=== PATIENT | male | born 1965 | race African-American/Black ===

== ENCOUNTER → 2019-12-14 | Outpatient (CLI) | payer BC ==
[2014-08-27 07:55] VITALS: BP 162/88
[~2019-12-14] MED LIST: ASPI-252 PO; METF500T16 PO; REGADENOSON 0.4 MG/5 ML DISP.SYRIN. IV ONE
--- NOTE | 2019-12-15 12:13 | CARD ---
MR#: [id number] Date of Study: 12/15/2019 Ordering Physician: MARIAH SHEPPARD, Referring Physician: MARIAH SHEPPARD, Tech: Shiela Hammond [facility] APPROVED REPORT EXAM: Two-dimensional and M-mode echocardiogram with Doppler and color Doppler. Other Information Quality : Good INDICATION Hypertension/HCVD RISK FACTORS Hypertension Hyperlipidemia Diabetes 2D DIMENSIONS RVDd3.0 (2.9-3.5cm)Left Atrium(2D)3.7 (1.6-4.0cm) IVSd1.0 (0.7-1.1cm)Aortic Root(2D)3.0 (2.0-3.7cm) LVDd4.7 (3.9-5.9cm)LVOT Diameter2.3 (1.8-2.4cm) PWd1.1 (0.7-1.1cm)LVDs3.1 (2.5-4.0cm) FS (%) 34.9 %SV66.2 ml Aortic Valve AoV Peak Braxton.94.0cm/sAoV VTI12.0cm AO Peak GR.3.5mmHgLVOT Peak Braxton.92.0cm/s AO Mean GR.2mmHgAVA (VMAX)3.97cm2 FELICIA (VTI)4.20cm2 Mitral Valve MV E Xesiunmy48.5cm/sMV DECEL FRQQ237ls MV A Thpypdmm30.9cm/sE/A Ratio0.7 LEFT VENTRICLE The left ventricle is normal size. There is borderline concentric left ventricular hypertrophy. The l eft ventricular systolic function is normal and the ejection fraction is within normal range. The Eje ction Fraction is 55-60%. There is normal LV segmental wall motion. Transmitral Doppler flow pattern is Grade I-abnormal relaxation pattern. RIGHT VENTRICLE The right ventricle is normal size. The right ventricular systolic function is normal. ATRIA The left atrium size is normal. The right atrium size is normal. The interatrial septum is intact wit h no evidence for an atrial septal defect or patent foramen ovale as noted on 2-D or Doppler imaging. AORTIC VALVE The aortic valve is calcified but opens well. Doppler and Color Flow revealed no significant aortic r egurgitation. There is no significant aortic valvular stenosis. MITRAL VALVE The mitral valve is normal in structure and function. There is no evidence of mitral valve prolapse. There is no mitral valve stenosis. Doppler and Color Flow revealed no mitral valve regurgitation note d. TRICUSPID VALVE The tricuspid valve is normal in structure and function. Doppler and Color Flow revealed no tricuspid valve regurgitation noted. There is no tricuspid valve stenosis. PULMONIC VALVE The pulmonic valve is not well visualized. Doppler and Color Flow revealed trace pulmonic valvular re gurgitation. There is no pulmonic valvular stenosis. GREAT VESSELS The aortic root is normal in size. The ascending aorta is not well seen. The IVC is normal in size an d collapses >50% with inspiration. PERICARDIAL EFFUSION There is no evidence of significant pericardial effusion. Critical Notification Critical Value: No <Conclusion> The left ventricle is normal size. The left ventricular systolic function is normal and the ejection fraction is within normal range. The Ejection Fraction is 55-60%. There is borderline concentric left ventricular hypertrophy. Doppler and Color Flow revealed no significant aortic regurgitation. There is no significant aortic valvular stenosis. Doppler and Color Flow revealed no mitral valve regurgitation noted. Doppler and Color Flow revealed no tricuspid valve regurgitation noted. Signed by : Carlton Corcker MD Electronically Approved : 12/15/2019 12:12:40
--- NOTE | 2019-12-15 12:38 | RAD ---
MR#: [id number] Date of Study: 12/15/2019 Ordering Physician: MARIAH SHEPPARD, Referring Physician: DAGMAR CANNON Tech: RT Darrell (R) (N) APPROVED REPORT Test Type: Pharmacological Stress Nurse/Tech: Jessica Robertson R.N. Test Indications: dyspnea Cardiac History: stents 2015,obesity,DM Medications: See Electronic Medical Record Medical History: See Electronic Medical Record Resting Heart Rate: 107 bpm Resting Blood Pressure: 126/79mmHg Pretest Chest Pain: No chest pain Nurse/Tech Notes S1S2, lungs CTA Consent: The procedure was explained to the patient in lay terms. Informed consent was witnessed. Rufus eout was entered into [employer]. History and Stress Test performed by RT Guy (R) (N) Pharm. Details Pharmacologic stress testing was performed using 0.4mg per 5ml of regadenoson given intravenously ove r 7-10 seconds. Stress Symptoms SOA POST EXERCISE Reason for Termination: Infusion complete Max HR: 119 bpm Max Blood Pressure: 125/78mmHg Blood Pressure response to exercise: Normal blood pressure response during stress. Heart Rate response to exercise: wnl Chest Pain: No. Arrhythmia: Yes. frequent pvc's ST Change: No. no changes from abnormal baseline INTERPRETATION Stress EKG Conclusion: The resting EKG showed a sinus tachycardia with a rate of [address]-T wave changes. The stress EKG showed no significant changes from baseline. No EKG evidence of stress-induced ischemia. Imaging Protocol IMAGE PROTOCOL: Rest Tc-99m/stress Tc-99m 2 days Rest: Stress: Viability: Radiopharm.Tc99m FyltujswoPw99e Sestamibi [id number] 32mCi Duration 15min. 15min. Img Date 12/14/2019 12/15/2019 Inj-Img [id number]. 60min. Rest Admin Site:IV - Left AntecubitalAdministrator:FELIBERTO Figueroa, ARRT (R)(N) Stress Admin Site: IV - Left AntecubitalAdministrator: FELIBERTO Figueroa, ARRT (R)(N) STRESS DATA End Diast. Vol.138.0mlAv. Heart Rddx157.0bpm End Syst. Vol.66.0mlCO Index BSA7.9L/min Myocardial Grvg647.0gEject. Jlnvazzz71.0% Stress Rates Pk. Fill Rate1.55EDV/secLVtime Pk. Fill 98.89msec Pk. Empty Rate2.91ESV/secLVtime Pk. Kwjpa406.21msec 03/27 Pk. Fill1.55EDV/sec Stress Scores Regional WT3.00Summed WT27.00 Regional WM0.00Summed WM3.00 LV Perfusion The stress scans show a inferior wall defect. The rest scans show an inferior wall defect. 2-day nuclear imaging shows a largely fixed inferior wall defect with the stress defect mildly more i ntense. It is suggestive of a previous infarct with possible mild venu-infarct reversibility althoug h attenuation defect cannot be entirely excluded. Wall Motion Left ventricular wall function shows mild inferior basilar hypokinesis, an ejection fraction of 52% a nd a TID measurement of 1.05. LV Perf. Quant 17 Seg. SSS4.00 17 Seg. SRS6.00 17 Seg. SDS0.00 Stress Defect Extent (% LAD)0.00Rest Defect Extent (% LAD)0.00Rev. Defect Extent (% LAD)0.00 Stress Defect Extent (% LCX) 58.80Rest Defect Extent (% LCX)45.00Rev. Defect Extent (% LCX)57.50 Stress Defect Extent (% RCA)2.20Rest Defect Extent (% RCA)0.00Rev. Defect Extent (% RCA)2.20 Stress Defect Extent (% AIME)13.30Rest Defect Extent (% AIME)7.80Rev. Defect Extent (% AIME)13.00 Conclusion 1. No EKG evidence of stress-induced ischemia. 2. Nuclear imaging shows a largely fixed inferior wall defect with the stress images being mildly mor e intense. This is consistent with the previous inferior infarct with mild venu-infarct ischemia but an attenuation defect cannot be entirely excluded. 3. Left ventricular function shows mild inferior basal hypokinesis, an ejection fraction of 52% and a TID measurement of 1.05. 4. Moderate risk Lexiscan nuclear stress test. Signed by : Carlton Crocker MD Electronically Approved : 12/15/2019 12:38:32
== END | disposition home or self-care (01) ==
LOC: NM 08:12
PROVIDERS: ATTEND Internal Medicine Cardiovascular Disease
DX: I35.1 Nonrheumatic aortic (valve) insufficiency (principal); I11.9 Hypertensive heart disease without heart failure; Z95.5 Presence of coronary angioplasty implant and graft
CPT/HCPCS: 78452; A9500; 93017; 93306; J2785